=== PATIENT | female | born 1985 | race Caucasian/White ===

== ENCOUNTER 2017-07-16 16:19 | Emergency (ER) | payer SELFPAY ==
[2017-07-16 16:32] VITALS: BP 128/86
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
--- NOTE | 2017-07-18 11:29 | CR ---
EXAM DATE: 07/16/17 PATIENT'S AGE: 31 Patient: YULIYA AUGUSTINE Facility: [place], [place] Site . Site : 1985 Study: XRay Knee Right [id number]/10/2018 5:00:07 PM Ordering Physician: Doctor Hein Final Report: HISTORY: Right knee pain. TECHNIQUE: Three views of the right knee. COMPARISON: No prior. FINDINGS: There is no acute fracture or significant malalignment. No suprapatellar joint effusion. Note is made of a small osteochondroma arising along the medial aspect of the proximal tibial metaphysis. Small focus of ossification within the soft tissues medial to the medial femoral condyle appears corticated and chronic. IMPRESSION: No acute fracture or malalignment. Dictated by Danny Barr MD @ 07/16/2017 5:06:56 PM Dictated by: Danny Barr MD @ 07/16/2017 17:06:59 (Electronic Signature) Report Signed by Proxy. NIGEL
== END 2017-07-16 17:33 | disposition home or self-care (01) ==
LOC: MW.ED 16:19
DX: M25.561 Pain in right knee (principal); J20.9 Acute bronchitis, unspecified
CPT/HCPCS: 73562-26-RT; 73562-RT; 99283

== ENCOUNTER 2017-11-04 22:21 | Emergency (ER) | payer MEDICAID ==
[2017-11-04] MEDS ORDERED: Sodium Chloride 0.9% 1,000 ML IV ONE (22:46)
[2017-11-04] MEDS ORDERED: Ondansetron 4 MG/2 ML SDV IVPUSH ONE (22:46)
[2017-11-04] MEDS ORDERED: Sodium Chloride 0.9% 10 ML Syringe FLUSH PRN (22:46)
[2017-11-04] MEDS ORDERED: Sodium Chloride 0.9% 2.5 ML Syringe FLUSH PRN (22:46)
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
[2017-11-04 23:30] LABS: CHLORIDE,CL 105 mmol/L (98-107); SODIUM,NA 140 mmol/L (136-145)
[2017-11-05] MEDS ORDERED: Sodium Chloride 0.9% 1,000 ML IV ONE (00:02)
[2017-11-05] MEDS ORDERED: Ondansetron 4 MG/2 ML SDV IVPUSH ONE (00:02)
[2017-11-05] MEDS ORDERED: Ondansetron 4 MG/2 ML SDV ONE (00:03)
[2017-11-05 01:24] VITALS: BP 109/85
--- NOTE | 2017-11-07 17:17 | US ---
EXAM DATE: 11/04/17 PATIENT'S AGE: 32 Patient: YULIYA AUGUSTINE Facility: [place], [place] Site Site : 1985 Study: US OB Pelvis 1st Trimester-11/05/2017 1:01:41 AM Ordering Physician: Tiera Thompson Final Report: Indication: . Nausea. Bleeding with intercourse Technique: Transvaginal early obstetrical pelvic ultrasound. Comparison: None available Findings: The uterus measures 9.9 x 5.4 x 6.9 centimeters. The endometrium measures up to 1.8 centimeters. There is a small saclike structure in the fundal endometrium with a mean sac diameter corresponding to 4 weeks and 4 days. No pole or yolk sac are identified. Small cervical nabothian cysts are seen. The right ovary measures 3.2 x 2.1 x 2.9 centimeters and the left ovary measures 2.0 x 1.7 x 2.1 centimeters. Bilateral ovarian Doppler flow is documented. There is tiny free fluid in the cul-de-sac. Impression: A small saclike structure in the fundal endometrium with a mean sac diameter corresponding to 4 weeks and 4 days. No pole or yolk sac identified. The findings could represent an early intrauterine gestation, however an anembryonic gestational or an ectopic gestation are not excluded. Correlate with beta HCG levels and a short-term followup study. Dictated by Stanley Cooper MD @ 11/05/2017 1:08:16 AM Dictated by: Stanley Cooper MD @ 11/05/2017 01:08:21 (Electronic Signature) Report Signed by Proxy. NIGEL
== END 2017-11-05 01:51 | disposition home or self-care (01) ==
LOC: MW.ED 22:21
DX: O20.0 Threatened abortion (principal); O21.8 Other vomiting complicating pregnancy; Z79.899 Other long term (current) drug therapy
CPT/HCPCS: 36415; 76801; 80053; 81001; 84702; 85025; 86900; 86901; 96361; 96374; 96376; 99284; J2405; J7040

== ENCOUNTER 2017-11-14 17:55 | Emergency (ER) | payer MEDICAID ==
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
[2017-11-14 18:31] VITALS: BP 122/87
--- NOTE | 2017-11-15 16:34 | US ---
EXAM DATE: 11/14/17 PATIENT'S AGE: 32 Patient: YULIYA AUGUSTINE Facility: [place], [place] Site . Site : [id number] Study: US OB Pelvis [id number]/9/2018 7:33:43 PM Ordering Physician: Tiera Thompson Final Report: INDICATION: Abdominal pain with vaginal bleeding TECHNIQUE: Ultrasound OB pelvis transvaginal. Real-time mclaughlin-scale imaging of the pelvis was performed. COMPARISON: November 05, 2017 FINDINGS: Sonographic imaging demonstrates a single living intrauterine gestation. The embryo demonstrates a regular cardiac rate measuring 103 beats per minute. The embryo`s crown rump length measurement of 0.64 cm corresponds to a gestational age of 6 weeks 4 days with a sonographic due date of July 06, 2018. There is a normal appearing yolk sac. There are no gross abnormalities noted within the embryo at this early state of development. The placenta has not yet developed. There is no sign of perigestational hemorrhage. The ovaries are of normal size. There are no suspicious fluid collections noted in the cul-de-sac. IMPRESSION: Single viable intrauterine . No abnormalities seen. Dictated by Edy Smith MD @ Nov 14 2017 7:48PM (Electronic Signature) [email or web address]
== END 2017-11-14 20:32 | disposition home or self-care (01) ==
LOC: MW.ED 17:55
DX: O20.0 Threatened abortion (principal); Z91.040 Latex allergy status; Z3A.01 Less than 8 weeks gestation of pregnancy
CPT/HCPCS: 76801; 76801-26; 81001; 84702; 85025; 99283; 99284-25

== ENCOUNTER 2021-02-20 16:51 | Emergency (ER) | payer SELFPAY ==
--- NOTE | 2021-02-20 17:28 | PCM.EKG ---
#1 Interpretation EKG Date: 02/20/21 Time: 17:07 Rhythm: NSR Rate (Beats/Min): 112 [place]: Normal P-Wave: Present QRS: Normal ST-T: Normal QT: Normal Comparison: NA - No Prior EKG EKG Interpretation Comments: Sinus Tachycardia
--- NOTE | 2021-02-20 18:22 | CR ---
Indication: Cough, right-sided chest pain Technique: Chest 1 view Comparison: None Findings/Impression: Normal cardiomediastinal silhouette. Patchy opacity at the right lung base. Likely small right pleural effusion. There are several right lateral rib fractures, some which appear old, others are indeterminate. Correlate with any history of recent trauma. No pneumothorax. The left lung and pleural space are clear. Surgical hardware projects over the right superior scapula. Dictated by Xioamra Calle MD @ 02/20/2021 6:21:36 PM (Electronically Signed)
[2021-02-20] MEDS ORDERED: Codeine/Promethazine 10-6.25 MG/5 ML Syrup 5 ML UD Syringe PO STA (18:58)
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
[2021-02-20 19:20] VITALS: BP 124/85; PULSE 103
== END 2021-02-20 19:21 | disposition home or self-care (01) ==
LOC: MW.ED 16:51
DX: U07.1 COVID-19 (principal)
CPT/HCPCS: 71045; 71045-26; 87804; 99284-25; U0002